=== PATIENT | female | born 2000 | race Caucasian/White ===

== ENCOUNTER 2020-07-24 16:44 | Emergency (ER) | payer OTHER ==
[~2020-07-24 16:44] MED LIST: BENADRYL25 MG PO; BENTYL10 MG PO; PEPCID AC20 MG PO; PREDNISONE 20MG20 MG PO; ZOFRAN8 MG PO
[2020-07-24 17:44] LABS: BASOPHIL 0.5 % (0-2); EOSINOPHIL 0.2 % (0-5); HCT 43.6 % (37.0-47.0); HGB 14.3 g/dl (12.5-16.0); LYMPHOCYTE 5.4 % (15-48); MCH 28.6 pg (25.0-31.0); MCHC 32.8 g/dL (32.0-36.0); MCV 87.2 fL (78.0-100.0); MONOCYTE 7.9 % (0-12); NEUTROPHIL 85.6 % (41-80); NRBC 0; PLT 469 K/uL (150-400); RDW 13.5 % (11.5-14.0)
[2020-07-24 17:47] LABS: WBC 23.9 K/uL (4.0-10.5)
[2020-07-24 17:51] LABS: BILIRUBIN 1+ mg/dL (NEGATIVE); BLOOD TRACE-INTACT Ery/uL (NEGATIVE); CLARITY CLEAR (CLEAR); COLOR YELLOW (YELLOW); GLUCOSE (U) NORMAL (NORMAL); LEUKOCYTES NEGATIVE Leu/uL (NEGATIVE); NITRITE NEGATIVE (NEGATIVE); PROTEIN TRACE (LOW) mg/dL (NEGATIVE); SPECIFIC GRAVITY >=1.030 (1.001-1.030); URINARY RBC RARE; UROBILINOGEN 0.2 mg/dL (0.2-1.0)
[2020-07-24 17:52] LABS: SQUAMOUS EPITHELIAL CELLS RARE
[2020-07-24 18:04] LABS: ALBUMIN 4.4 g/dL (3.4-5.0); BILIRUBIN - TOTAL 0.6 mg/dL (0.2-1.0); BUN/CREAT RATIO (CALC) 19.3 RATIO; CREATININE 0.83 mg/dL (0.51-0.95); GLOBULIN (CALCULATION) 4.2 g/dL; POTASSIUM 3.9 mmol/L (3.5-5.1); TOTAL PROTEIN 8.6 g/dL (6.4-8.2)
[2020-07-24 18:14] LABS: LACTIC ACID 1.4 mmol/L (0.4-1.9)
[2020-07-24 18:23] LABS: CORONAVIRUS 2019 SARS-COV-2 NEGATIVE (NEGATIVE); INFLUENZA A NAA NEGATIVE (NEGATIVE)
[2020-07-24] MEDS ORDERED: METRONIDAZOLE500 MG PO (20:05)
[2020-07-24] MEDS ORDERED: BENTYL10 MG PO (20:05)
[2020-07-24] MEDS ORDERED: CIPRO500 MG PO (20:05)
[2020-07-24] MEDS ORDERED: ONDANSETRON ODT4 MG PO (20:05)
== END 2020-07-24 22:30 | disposition home or self-care (01) ==
LOC: FER 16:44
PROVIDERS: Nurse Practitioner Family
DX: K52.9 Noninfective gastroenteritis and colitis, unspecified (principal); Z87.19 Personal history of other diseases of the digestive system; Z91.018 Allergy to other foods; Z20.822 Contact with and (suspected) exposure to COVID-19
CPT/HCPCS: 36415; 80053; 81001; 83605; 85025; J1885; J2405; J7030; Q9967; U0002